=== PATIENT | female | born 1980 | race Hispanic/Latino ===

== ENCOUNTER 2019-11-02 08:20 | Outpatient (CLI) | payer OTHER, SELFPAY ==
--- NOTE | ~2019-11-02 | MM_ITS ---
EXAMINATION: MM screening clare BI w shashi HISTORY: Screening TECHNIQUE: Craniocaudal and mediolateral oblique 3-D tomosynthesis images were obtained and synthetic 2-D images were generated. CAD analysis was submitted and interpreted. COMPARISON: No prior mammogram is available for comparison at this institution. BREAST PARENCHYMAL COMPOSITION: FINDINGS: There is no evidence of suspicious mass, calcification, or architectural distortion to sugg est malignancy in either breast. There has been no suspicious interval change. IMPRESSION: 1. No mammographic evidence of malignancy. 2. Recommend routine screening mammography in one year. Reviewed, dictated and finalized at location A.
== END 2019-11-02 08:21 | disposition home or self-care (01) ==
PROVIDERS: PCP Emergency Medicine; Visit Provider Nurse Practitioner Obstetrics & Gynecology
DX: Z12.31 Encounter for screening mammogram for malignant neoplasm of breast (principal)
CPT/HCPCS: 77063; 77067

== ENCOUNTER 2020-11-04 15:16 | Outpatient (CLI) | payer OTHER, SELFPAY ==
--- NOTE | ~2020-11-04 | MM_ITS ---
EXAMINATION: MM screening clare BI w shashi HISTORY: Screening mammogram TECHNIQUE: Craniocaudal and mediolateral oblique 3-D tomosynthesis images were obtained and synthetic 2-D images were generated. CAD analysis was submitted and interpreted. COMPARISON: 11/02/2019 bilateral digital screening mammogram BREAST PARENCHYMAL COMPOSITION: The breasts are heterogeneously dense, which may obscure small masses . FINDINGS: There is no evidence of suspicious mass, calcification, or architectural distortion to sugg est malignancy in either breast. There has been no suspicious interval change. IMPRESSION: 1. No mammographic evidence of malignancy. 2. Recommend routine screening mammography in one year. BI-RADS Category 1: Negative Reviewed, dictated and finalized at location A.
== END 2020-11-04 15:17 | disposition home or self-care (01) ==
PROVIDERS: PCP Emergency Medicine; Visit Provider Nurse Practitioner Obstetrics & Gynecology
DX: Z12.31 Encounter for screening mammogram for malignant neoplasm of breast (principal)
CPT/HCPCS: 77063; 77067

== ENCOUNTER 2020-11-26 08:40 | Outpatient (CLI) | payer OTHER, SELFPAY ==
--- NOTE | 2020-11-26 12:00 | NEURO_ITS ---
Impression: # Complains of numbness of hands. # Subtle evolving Carpal Tunnel Syndrome. # Left ulnar neuropathy across the elbow. # Normal needle/EMG exam. # Clinical correlation recommended. Nerve Conduction Studies Anti Sensory Summary Table Stim Site NR Peak (ms) P-T Amp (?V) Site1 Site2 Delta-P (ms) Dist (cm) Gus (m/s) Left Median Anti Sensory (2-3nd Digit) Wrist 3.1 68.6 Wrist 2-3nd Digit 3.1 14.0 45 Wrist 3.2 86.4 Wrist 2-3nd Digit 3.1 14.0 45 Right Median Anti Sensory (2-3nd Digit) Wrist 3.2 75.8 Wrist 2-3nd Digit 3.2 14.0 44 Wrist 3.2 72.0 Wrist 2-3nd Digit 3.2 14.0 44 Left Radial Anti Sensory (Base 1st Digit) Wrist 1.6 42.2 Wrist Base 1st Digit 1.6 0.0 Right Radial Anti Sensory (Base 1st Digit) Wrist 1.8 32.9 Wrist Base 1st Digit 1.8 0.0 Left Ulnar Anti Sensory (5th Digit) Wrist 2.4 43.0 Wrist 5th Digit 2.4 14.0 58 Right Ulnar Anti Sensory (5th Digit) Wrist 2.6 79.4 Wrist 5th Digit 2.6 14.0 54 Motor Summary Table Stim Site NR Onset (ms) O-P Amp (mV) Site1 Site2 Delta-0 (ms) Dist (cm) Gus (m/s) Left Median Motor (Abd Poll Brev) Wrist 3.3 5.4 Elbow Wrist 5.0 29.0 58 Elbow 8.3 3.7 Right Median Motor (Abd Poll Brev) Wrist 3.2 7.1 Elbow Wrist 5.5 28.0 51 Elbow 8.7 3.2 Left Ulnar Motor (Abd Dig Minimi) Wrist 2.3 5.8 A Elbow Wrist 5.1 25.0 49 A Elbow 7.4 5.3 B Elbow Wrist 3.3 21.0 64 B Elbow 5.6 2.0 Right Ulnar Motor (Abd Dig Minimi) Wrist 2.3 4.7 A Elbow Wrist 4.4 27.0 61 A Elbow 6.7 4.5 F Wave Studies NR F-Lat (ms) L-R F-Lat (ms) Left Median (Mrkrs) (Abd Poll Brev) 27.34 0.00 Right Median (Mrkrs) (Abd Poll Brev) 27.34 0.00 Left Ulnar (Mrkrs) (Abd Dig Min) 27.84 0.00 Right Ulnar (Mrkrs) (Abd Dig Min) 27.84 0.00 EMG Side Muscle Nerve Root Ins Act Fibs Amp Dur Recrt Comment Right 1stDorInt Ulnar C8-T1 Nml Nml Nml Nml Nml Right Ext Indicis Radial (Post Int) C7-8 Nml Nml Nml Nml Nml Right Ext Digitorum Radial (Post Int) C7-8 Nml Nml Nml Nml Nml Right BrachioRad Radial C5-6 Nml Nml Nml Nml Nml Right PronatorTeres Median C6-7 Nml Nml Nml Nml Nml Right Abd Poll Brev Median C8-T1 Nml Nml Nml Nml Nml Left 1stDorInt Ulnar C8-T1 Nml Nml Nml Nml Nml Left Ext Indicis Radial (Post Int) C7-8 Nml Nml Nml Nml Nml Left Ext Digitorum Radial (Post Int) C7-8 Nml Nml Nml Nml Nml Left BrachioRad Radial C5-6 Nml Nml Nml Nml Nml Left PronatorTeres Median C6-7 Nml Nml Nml Nml Nml Left Abd Poll Brev Median C8-T1 Nml Nml Nml Nml Nml MTDD
== END 2020-11-26 08:41 | disposition home or self-care (01) ==
PROVIDERS: PCP Emergency Medicine; Visit Provider Emergency Medicine
DX: G56.03 Carpal tunnel syndrome, bilateral upper limbs (principal); G56.22 Lesion of ulnar nerve, left upper limb
CPT/HCPCS: 95886; 95911

== ENCOUNTER 2020-12-23 22:27 | Emergency (ER) | payer OTHER, SELFPAY ==
[2020-12-23 22:30] VITALS: BP 158/105; PULSE 88; RESP 18; TEMP 36.2; O2SAT 96
[2020-12-23 23:21] VITALS: BP 122/77; PULSE 74; RESP 18; O2SAT 100
--- NOTE | 2020-12-23 23:24 | ED.GIBLEED ---
HPI - GI Bleed General Chief complaint: GI Bleed Stated complaint: rectal bleed Time Seen by Provider: 12/23/20 23:07 Source: patient and RN notes reviewed Mode of arrival: ambulatory Limitations: no limitations History of Present Illness HPI Narrative: Patient is a 40 year old woman who presents for evaluation of rectal bleeding. She states she was urinating when she saw bright red blood when she wiped. She is absolutely sure her bleeding was rectal source. She also notes when she lean to her side , bright red blood was squirting out. She denies rectal pain, diarrhea, abdominal pain, lightheadedness. She reports history of hemorrhoids but they have never bled before. She is on her menstrual cycle but she is wearing tampon . Related Data Allergies Allergy/AdvReac Type Severity Reaction Status Date / Time codeine Allergy Hives Verified 12/23/20 22:32 Review of Systems Review of Systems: All systems reviewed & are unremarkable except as noted in HPI and below PMFSH Past Medical History Medical History (Updated 12/24/20 @ 00:42 by Kari Mendoza MD) Patient denies medical problems Surgical History Surgical History (Updated 12/23/20 @ 23:27 by Kari Mendoza MD) No pertinent past surgical history Social History Social History (Updated 12/23/20 @ 23:27 by Kari Mendoza MD) Smoking status: Never smoker Exam Const: General: no acute distress and alert Orientation/consciousness: patient oriented x3 Eyes: EOM: EOMs intact bilaterally Resp: Effort & Inspection: normal respiratory effort and no retractions Auscultation: clear to auscultation bilaterally Cardio: Rate: regular rate Rhythm: regular rhythm Heart sounds: no murmurs GI: GI Palp: Yes Soft to palpation, No Tenderness to palpation present (GI) and No Guarding due to palpation present (GI) Auscultation: normal bowel sounds Rectal Exam: normal sphincter tone Other: external hemorrhoids present but no thrombosed hemorrhoid, no active bleeding. Slight blood tinged mucous on digit exam Skin: General skin exam: normal color Rashes: no rashes Neuro: General: patient oriented x3, moves all extremities and CN's II-XI intact bilaterally Course Reevaluation(s) Reevaluation #1: I discussed with patient labs are unremarkable.. Her bleeding is likely hemorrhoidal. I Discussed discharge plan Date: 12/24/20 Time: 00:40 Vital Signs Vital signs: Vital Signs Temperature 97.1 F L 12/23/20 22:30 Pulse Rate 88 12/23/20 22:30 Respiratory Rate 18 12/23/20 22:30 Blood Pressure 158/105 H 12/23/20 22:30 Pulse Oximetry 96 12/23/20 22:30 Temperature 97.1 F L 12/23/20 22:30 Pulse Rate 78 12/24/20 00:48 Respiratory Rate 16 12/24/20 00:48 Blood Pressure 117/81 12/24/20 00:48 Pulse Oximetry 98 12/24/20 00:48 MDM - GI Bleed Medical Records Attestation: I reviewed the patient's medical records. Lab Data Attestation: I reviewed the patient's lab results. Result diagrams: 12/23/20 23:40 12/23/20 23:40 Labs: Lab Results 12/23/20 12/23/20 12/23/20 Range/Units 23:40 23:40 23:40 WBC 8.9 (4.5-10.0) K/mm3 RBC 4.10 L (4.2-5.4) M/mm3 Hgb 13.1 (12.0-15.0) g/dL Hct 39.6 (37.0-47.0) % MCV 96.6 (80-100) fl MCH 32.0 (26-34) pg MCHC 33.1 (32-36) g/dl RDW 12.6 (11.5-14.5) % Plt Count 300 (150-375) k/mm3 MPV 10.1 (7.4-10.4) fl Immature Gran % (Auto) 0.3 (0-0.5) % Neut % (Auto) 52.8 (45.5-73.1) % Lymph % (Auto) 34.0 (18.3-44.2) % Cassia % (Auto) 8.8 H (2.6-8.5) % Eos % (Auto) 2.8 (0-4.4) % Baso % (Auto) 1.3 H (0.2-1.2) % Lymph # (Auto) 3.03 (0.9-3.2) K/mm3 Cassia # (Auto) 0.8 H (0.1-0.6) K/mm3 Eos # (Auto) 0.3 (0-0.3) K/mm3 Baso # (Auto) 0.1 (0.0-0.1) K/mm3 Abs Immat Gran (auto) 0.03 (0.00-0.031) K/mm3 Absolute Neuts (auto) 4.7 (1.3-6.7) K/mm3 Absolute Nucleated RBC 0.0 (0.0-0.012)
[2020-12-23 23:27] VITALS: BP 111/76; PULSE 82
[2020-12-23 23:50] LABS: Basophils Absolute Auto 0.1 K/mm3 (0.0-0.1); Basophils Percent Auto 1.3 % (0.2-1.2); Eosinophils Absolute Auto 0.3 K/mm3 (0-0.3); Eosinophils Percent Auto 2.8 % (0-4.4); Hematocrit 39.6 % (37.0-47.0); Hemoglobin 13.1 g/dL (12.0-15.0); Immature Granulocyte Absolute 0.03 K/mm3 (0.00-0.031); Immature Granulocyte Percent A 0.3 % (0-0.5); Lymphocytes Absolute Auto 3.03 K/mm3 (0.9-3.2); Mean Corpuscular HGB Conc 33.1 g/dl (32-36); Mean Corpuscular Volume 96.6 fl (80-100); Mean Platelet Volume 10.1 fl (7.4-10.4); Monocytes Absolute Auto 0.8 K/mm3 (0.1-0.6); Monocytes Percent Auto 8.8 % (2.6-8.5); Neutrophils Absolute Auto 4.7 K/mm3 (1.3-6.7); Neutrophils Percent Auto 52.8 % (45.5-73.1); Platelet Count Result 300 k/mm3 (150-375); Red Cell Distribution Width 12.6 % (11.5-14.5); White Blood Count 8.9 K/mm3 (4.5-10.0)
[2020-12-24 00:02] LABS: INR 0.9; Prothrombin Time 11.7 Seconds (11.1-14.7)
[2020-12-24 00:03] LABS: Partial Thromboplastin Time 25.6 SECONDS (22.3-36.8)
[2020-12-24 00:07] LABS: Alanine Aminotransferase 34 U/L (4-35); Albumin Level 4.3 g/dL (3.5-5.1); Alkaline Phosphatase 63 U/L (38-126); Anion Gap 6 mmol/L (8-16); Aspartate Amino Transferase 31 U/L (14-36); Bilirubin,Total 0.1 mg/dL (0.2-1.3); Blood Urea Nitrogen 18 mg/dL (7-17); Carbon Dioxide 28 mmol/L (22-30); Chloride 105 mmol/L (98-107); Estimated CRCL calculation 94 ml/min; Estimated Glomerular Filt Rate > 60; Glucose 108 mg/dL (65-110); Potassium 3.9 mmol/L (3.4-5.0); Sodium 139 mmol/L (137-145)
[2020-12-24 00:48] VITALS: BP 117/81; PULSE 78; RESP 16; O2SAT 98
== END 2020-12-24 00:55 | disposition home or self-care (01) ==
PROVIDERS: Emergency Provider General Practice; PCP Emergency Medicine
DX: K62.5 Hemorrhage of anus and rectum (principal); K64.9 Unspecified hemorrhoids
CPT/HCPCS: 36415; 80053; 85025; 85610; 85730; 86850; 86900; 86901; 99283

== ENCOUNTER 2022-01-26 15:04 | Outpatient (CLI) | payer OTHER, SELFPAY ==
--- NOTE | ~2022-01-26 | MM_ITS ---
EXAMINATION: MM screening clare BI w shashi HISTORY: Screening mammogram, family history of breast cancer in her mother. TECHNIQUE: Craniocaudal and mediolateral oblique 3-D tomosynthesis images were obtained and synthetic 2-D images were generated. CAD analysis was submitted and interpreted. COMPARISON: 11/04/2020, 11/02/2019 BREAST PARENCHYMAL COMPOSITION: The breasts are heterogeneously dense, which may obscure small masses . FINDINGS: RIGHT BREAST: No suspicious mass, calcification, or architectural distortion are identified to sugges t malignancy. There has been no suspicious interval change. LEFT BREAST: There is a possible mass in the posterior third of the lower-outer breast. IMPRESSION: 1. Possible left breast mass. 2. Additional mammographic views and possible breast ultrasound are recommended. BI-RADS Category 0: Incomplete: Needs additional imaging evaluation. Reviewed, dictated and finalized at location A. OFFICE MARKUP CLERK IMPRESSION: 1. Possible left breast mass. 2. Additional mammographic views and possible breast ultrasound are recommended . BI-RADS Category 0: Incomplete: Needs additional imaging evaluation.
== END 2022-01-26 15:05 | disposition home or self-care (01) ==
LOC: ANHIMG 15:05
PROVIDERS: PCP Emergency Medicine; Visit Provider Emergency Medicine
DX: Z12.31 Encounter for screening mammogram for malignant neoplasm of breast (principal); R92.8 Other abnormal and inconclusive findings on diagnostic imaging of breast
CPT/HCPCS: 77063; 77067

== ENCOUNTER 2022-02-10 12:43 | Outpatient (CLI) | payer OTHER, SELFPAY ==
--- NOTE | ~2022-02-10 | MMUS_ITS ---
EXAMINATION: MM diagnostic clare LT w shashi, US breast LT limited HISTORY: Follow-up left breast mass TECHNIQUE: Additional 3-D tomosynthesis images of the left breast were performed and synthetic 2-D im ages were generated. CAD analysis was submitted and interpreted. High resolution Limited left breast ultrasound was performed. COMPARISON: 01/26/2022 BREAST PARENCHYMAL COMPOSITION: The breasts are heterogeneously dense, which may obscure small masses FINDINGS: MAMMOGRAPHIC FINDINGS: There is a persistent low-density mass in the lower outer quadrant of the left breast posteriorly. Th ere are no suspicious calcifications or architectural distortion. ULTRASOUND: Limited left breast ultrasound: At 4:00, 5 cm from the nipple there is a 1.6 x 1.3 x 0.5 cm cyst callie esponding to the mammographic finding. Near the nipple there is a 8 mm oval hypoechoic mass with para llel orientation, low level internal echoes, no posterior shadowing and no internal vascularity measu ring 8 x 8 x 6 mm. IMPRESSION: 1. Probable benign left breast mass near the nipple measuring 8 mm. Simple cyst measuring 1.6 cm callie esponds to the mammographic finding. 2. Recommend 6 month follow-up left breast ultrasound BI-RADS category 3, probably benign findings. Reviewed, dictated and finalized at location B. [employer] IMPRESSION: 1. Probable benign left breast mass near the nipple measuring 8 mm. Simple cyst measuring 1.6 cm corresponds to the mammographic finding. 2. Recommend 6 month follow-up left breast ultrasound BI-RADS category 3, probably benign findings.
== END 2022-02-10 12:44 | disposition home or self-care (01) ==
LOC: ANHIMG 12:45
PROVIDERS: PCP Emergency Medicine; Visit Provider Emergency Medicine
DX: N63.20 Unspecified lump in the left breast, unspecified quadrant (principal); R92.8 Other abnormal and inconclusive findings on diagnostic imaging of breast
CPT/HCPCS: 76642; 77061; 77065; G0279

== ENCOUNTER 2023-12-17 07:59 | Emergency (ER) | payer OTHER, SELFPAY ==
--- NOTE | ~2023-12-17 | XR_ITS ---
XR chest 2V 12/17/2023 09:01 Indication: Cough and congestion Procedure: 2 view chest Comparison: No prior studies for comparison. Findings: Shallow inspiration. Bibasilar atelectasis. No focal pneumonia, edema or effusion. No pneum othorax. Impression: 1: Bibasilar atelectasis. Reviewed, dictated and finalized at location B. Impression: 1: Bibasilar atelectasis.
[2023-12-17 08:04] VITALS: BP 117/76; PULSE 85; RESP 16; TEMP 36.4; O2SAT 98
[2023-12-17 08:19] VITALS: BP 117/76; PULSE 85; RESP 19; TEMP 36.4; O2SAT 98
--- NOTE | 2023-12-17 08:42 | ED.GENADULT ---
HPI - General Adult General Chief complaint: Upper Respiratory Infection Stated complaint: coughing, congestion Time Seen by Provider: 12/17/23 08:11 History of Present Illness HPI narrative: 43-year-old female present to the emergency department for evaluation for cough and congestion started approximately 2 days ago. 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 Related Data Allergies Allergy/AdvReac Type Severity Reaction Status Date / Time codeine Allergy Hives Verified 12/17/23 08:22 Review of Systems Review of Systems: All systems reviewed & are unremarkable except as noted in HPI and below PMFSH Past Medical History Medical History (Updated 12/17/23 @ 09:30 by Jermaine Jesus MD) Patient denies medical problems Surgical History Surgical History (Updated 12/23/20 @ 23:27 by Kari Mendoza MD) No pertinent past surgical history Social History Social History (Updated 12/23/20 @ 23:27 by Kari Mendoza MD) Smoking status: Never smoker Exam Narrative: APPEARANCE: Well appearing, no pain, no distress, well-nourished. HEAD: normocephalic, atraumatic. EYES: PERRLA/EOMI, conjunctivae clear. NOSE: Normal no drainage EARS:TMS clear with good light reflex. THROAT: Pharynx clear, no exudate. NECK: Supple. No adenopathy, no masses. RESPIRATORY: Airway patent, respirations nonlabored. Clear to auscultation bilaterally, no rales, rhonchi, wheezing. CARDIOVASCULAR: Regular rate and rhythm without murmurs rubs or gallops. ABDOMINAL: Soft, nontender, nondistended, normal bowel sounds MUSCULOSKELETAL: Moves all extremities. Strength/ROM intact, No edema, No calf tenderness. NEURO: Alert. Cranial nerves II through XII intact. SKIN: Warm, dry. Normal Color Course Vital Signs Vital signs: Vital Signs Temperature 97.6 F 12/17/23 08:04 Pulse Rate 85 12/17/23 08:04 Respiratory Rate 16 12/17/23 08:04 Blood Pressure 117/76 12/17/23 08:04 Pulse Oximetry 98 12/17/23 08:04 Oxygen Delivery Room Air 12/17/23 08:04 Temperature 97.6 F 12/17/23 08:19 Pulse Rate 90 12/17/23 09:46 Respiratory Rate 18 12/17/23 09:46 Blood Pressure 105/79 12/17/23 09:46 Pulse Oximetry 98 12/17/23 09:46 Oxygen Delivery Room Air 12/17/23 08:19 Medical Decision Making MDM Narrative Medical decision making narrative: 43-year-old female presents emergency department for evaluation of cough and congestion. Patient was afebrile with normal vital signs. Patient was negative for influenza RSV and for COVID. Chest x-ray shows no acute cardiopulmonary abnormality. Differential Diagnosis Differential Diagnosis: RSV, influenza, COVID Vital Signs Vital Signs: Vital Signs Temperature 97.6 F 12/17/23 08:04 Pulse Rate 85 12/17/23 08:04 Respiratory Rate 16 12/17/23 08:04 Blood Pressure 117/76 12/17/23 08:04 Pulse Oximetry 98 12/17/23 08:04 Oxygen Delivery Room Air 12/17/23 08:04 Temperature 97.6 F 12/17/23 08:19 Pulse Rate 90 12/17/23 09:46 Respiratory Rate 18 12/17/23 09:46 Blood Pressure 105/79 12/17/23 09:46 Pulse Oximetry 98 12/17/23 09:46 Oxygen Delivery Room Air 12/17/23 08:19 Lab Data Labs: Lab Results 12/17/23 Range/Units 08:17 Influenza A (RT-PCR) Negative (Negative) Influenza B (RT-PCR) Negative (Negative) RSV (RT-PCR) Negative (Negative) SARS-CoV-2 RNA (RT-PCR) Negative (Negative) Discharge Plan Discharge Clinical Impression: Upper respiratory infection, Viral infection Patient Disposition: Home, Self-Care Condition: Stable Instructions: Antibiotic Form, Viral Syndrome (ED) Additional Instructions: Albuterol inhaler for shortness of breath and Tessalon Perles for cough. Tylenol and ibuprofen for pain control. Have close follow-up with your primary care physician. Prescriptions: New albuterol sulfate 90 mcg/actuation HFA aerosol inhaler 1 inh inhalation QID PRN (Reaso
[2023-12-17 09:05] LABS: Influenza A QL RT-PCR Negative (Negative); Influenza B QL RT-PCR Negative (Negative); RSV RNA, RT-PCR Negative (Negative); SARS-CoV-2 RNA PCR Negative (Negative)
[2023-12-17 09:46] VITALS: BP 105/79; PULSE 90; RESP 18; O2SAT 98
== END 2023-12-17 09:47 | disposition home or self-care (01) ==
PROVIDERS: Emergency Provider Emergency Medicine; PCP Emergency Medicine
DX: J06.9 Acute upper respiratory infection, unspecified (principal); Z20.822 Contact with and (suspected) exposure to COVID-19
CPT/HCPCS: 71046; 87637; 99283